=== PATIENT | male | born 1960 | race Caucasian/White ===

== ENCOUNTER 2016-07-01 11:58 | Inpatient (IN) | payer MEDICARE, OTHER ==
[~2016-07-01 11:58] MED LIST: ACETAMINOPHEN 100 ML IV ONE; GLYCOPYRROLATE INJ 0.4 MG/2 ML VIAL ONE; NEOSTIGMINE METHYLSULFATE 10 MG/10 ML VIAL ONE; ONDANSETRON HCL INJ/PF 4 MG/2 ML SDV ONE; ROCURONIUM BROMIDE INJ 50 MG/5 ML VIAL IV ONE; SUCCINYLCHOLINE CHLORIDE INJ 200 MG/10 ML VIAL ONE
--- NOTE | 2016-07-01 12:47 | ER Document Report ---
ED Medical Screen (RME) - General Chief Complaint: Abdominal Pain Stated Complaint: ABDOMINAL PAIN Notes: Patient is complaining of abdominal pains that started on Tuesday. They were fairly severe Tuesday and Tuesday, although he thought it was due to constipation. Pain is located in the middle central abdomen. [facility] and they told him he had a hernia. He says the pain has decreased some since he was seen at the [facility], and he feels constipated and has had poor bowel movement. Denies any nausea or vomiting or diarrhea. No blood in stools. No chest pains. No fevers. No abdominal surgeries. On exam, patient does have an umbilical hernia, which I believe is completely reducible. It's difficult to attempt to reduce it with him in a sitting position in a chair in triage. TRAVEL OUTSIDE OF THE [place] IN LAST 30 DAYS: No - Related Data Allergies/Adverse Reactions: No Known Allergies Allergy (Unverified 07/01/16 12:08) Past Medical History Renal/ Medical History: Denies: Hx Peritoneal Dialysis Physical Exam - Vital signs Vitals: Temp Pulse Resp BP Pulse Ox 97.6 F 91 20 128/85 H 96 07/01/16 12:08 07/01/16 12:08 07/01/16 12:08 07/01/16 12:08 07/01/16 12:08 Course - Vital Signs Vital signs: Temp Pulse Resp BP Pulse Ox 97.6 F 91 20 128/85 H 96 07/01/16 12:08 07/01/16 12:08 07/01/16 12:08 07/01/16 12:08 07/01/16 12:08
[2016-07-01 13:05] LABS: ABSOLUTE BASOPHILS # (AUTO) 0.1 10^3/uL (0.0-0.2); ABSOLUTE EOSINOPHILS # (AUTO) 0.2 10^3/uL (0.0-0.6); ABSOLUTE LYMPHOCYTES (AUTO) 2.4 10^3/uL (0.5-4.7); ABSOLUTE MONOCYTES (AUTO) 1.1 10^3/uL (0.1-1.4); ABSOLUTE NEUT (AUTO) 14.5 10^3/uL (1.7-8.2); BASOPHILS % (AUTO) 0.6 % (0-2); EOSINOPHILS % (AUTO) 1.3 % (0-6); HEMATOCRIT 41.3 % (37.9-51.0); HEMOGLOBIN 13.6 g/dL (13.5-17.0); HGB HCT DIFFERENCE -0.5; LYMPHOCYTES % (AUTO) 12.9 % (13-45); MEAN CORPUSCULAR HGB CONC 32.9 g/dL (32.0-36.0); MEAN CORPUSCULAR VOLUME 88 fl (80-97); MONOCYTES % (AUTO) 6.1 % (3-13); RED BLOOD COUNT 4.69 10^6/uL (4.35-5.55); RED CELL DISTRIBUTION WIDTH 13.6 % (11.5-14.0); SEGMENTED NEUTROPHILS % (AUTO) 79.1 % (42-78); WHITE BLOOD COUNT 18.3 10^3/uL (4.0-10.5)
[2016-07-01 13:12] LABS: APPEARANCE,URINE CLEAR; BILIRUBIN,URINE NEGATIVE (NEGATIVE); GLUCOSE, URINE NEGATIVE (NEGATIVE); KETONES,URINE NEGATIVE (NEGATIVE); LEUKOCYTE ESTERASE,URINE NEGATIVE (NEGATIVE); NITRITE,URINE NEGATIVE (NEGATIVE); PROTEIN,URINE NEGATIVE (NEGATIVE); URINE SPECIFIC GRAVITY 1.015
[2016-07-01 13:24] LABS: ALANINE AMINOTRANSFERASE 42 U/L (21-72); ALBUMIN 3.7 g/dL (3.5-5.0); ALKALINE PHOSPHATASE 101 U/L (38-126); ANION GAP 14 (5-19); ASPARTATE AMINO TRANSFERASE 43 U/L (17-59); BILIRUBIN,DIRECT 0.7 mg/dL (0.0-0.4); BILIRUBIN,TOTAL 2.1 mg/dL (0.2-1.3); BLOOD UREA NITROGEN 23 mg/dL (7-20); CALCIUM 9.4 mg/dL (8.4-10.2); CARBON DIOXIDE 28 mmol/L (22-30); CHLORIDE 100 mmol/L (98-107); CREATININE RESULT 0.93 mg/dL (0.52-1.25); GLUCOSE 113 mg/dL (75-110); LIPASE 92.5 U/L (23-300); POTASSIUM 4.2 mmol/L (3.6-5.0); SODIUM 141.8 mmol/L (137-145); TOTAL PROTEIN 7.1 g/dL (6.3-8.2)
--- NOTE | 2016-07-01 14:06 | ER Document Report ---
ED GI/ - General Mode of Arrival: Ambulatory Information source: Patient TRAVEL OUTSIDE OF THE [place] IN LAST 30 DAYS: No - HPI Patient complains to provider of: Abdominal pain - RUQ Onset: Other - 11 days ago Location: RUQ Associated symptoms: Other - see notes above <PATRICIA HAWKINS - Last Filed: 07/01/16 17:24> <CHARITY HAYES - Last Filed: 07/01/16 19:56> - General Chief Complaint: Abdominal Pain Stated Complaint: ABDOMINAL PAIN Notes: 55 year old male with history of an umbilical hernia presents to the ED complaining of RUQ abdominal pain that started 11 days ago. Patient reports that when the pain first started he was having tremendous pain with some abdominal distention. [facility]. Patient reports that the pain has gotten better, but complains of a decrease appetite. Patient [facility] unable to [facility] an [facility], so was sent to the ED. (PATRICIA HAWKINS) - Related Data Allergies/Adverse Reactions: No Known Allergies Allergy (Verified 07/01/16 13:43) Home Medications: Current Home Medications Gemfibrozil [Lopid 600 mg Tablet] 600 mg PO DAILY 07/01/16 [History] Hydrochlorothiazide [Hydrodiuril 25 mg Tablet] 25 mg PO QAM 07/01/16 [History] Losartan Potassium [Cozaar 100 mg Tablet] 100 mg PO DAILY 07/01/16 [History] Omeprazole 20 mg PO DAILY 07/01/16 [History] Past Medical History - General Information source: Patient - Social History Smoking Status: Never Smoker Frequency of alcohol use: Heavy - weekends Family History: Reviewed & Not Pertinent Patient has suicidal ideation: No Patient has homicidal ideation: No Renal/ Medical History: Denies: Hx Peritoneal Dialysis Past Surgical History: Denies: Hx Abdominal Surgery <PATRICIA HAWKINS - Last Filed: 07/01/16 17:24> Review of Systems - Review of Systems Constitutional: No symptoms reported EENT: No symptoms reported Cardiovascular: No symptoms reported Respiratory: No symptoms reported Gastrointestinal: See HPI, Abdomen distended, Abdominal pain - RUQ, Poor appetite Genitourinary: No symptoms reported Male Genitourinary: No symptoms reported Musculoskeletal: No symptoms reported Skin: No symptoms reported Hematologic/Lymphatic: No symptoms reported Neurological/Psychological: No symptoms reported -: Yes All other systems reviewed and negative <SHRUTHIPATRICIA - Last Filed: 07/01/16 17:24> Physical Exam - General General appearance: Alert In distress: None - HEENT Head: Normocephalic, Atraumatic Eyes: Normal Extraocular movements intact: Yes Pupils: PERRL - Respiratory Respiratory status: No respiratory distress Breath sounds: Normal - Cardiovascular Rhythm: Regular Heart sounds: Normal auscultation - Abdominal Inspection: Normal Distension: No distension Tenderness: Tender - RUQ tenderness to palpation - Back Back: Normal - Extremities General upper extremity: Normal inspection, Normal ROM General lower extremity: Normal inspection, Normal ROM - Neurological Neuro grossly intact: Yes Cognition: Normal Orientation: AAOx4 [place] Coma Scale Eye Opening: Spontaneous Nathanael Coma Scale Verbal: Oriented [place] Coma Scale Motor: Obeys Commands Nathanael Coma Scale Total: 15 Speech: Normal - Psychological Associated symptoms: Normal affect, Normal mood - Skin Skin Temperature: Warm Skin Moisture: Dry Skin Color: Normal <PATRICIA HAWKINS - Last Filed: 07/01/16 17:24> Course - Laboratory Result Diagrams: 07/01/16 12:45 07/01/16 12:45 - Consults Dr. Campos Time consulted: 15:11 <SHRUTHIPATRICIA - Last Filed: 07/01/16 17:24> - Laboratory Result Diagrams: 07/01/16 12:45 07/01/16 12:45 - Diagnostic Test Radiology reviewed: Image reviewed, Reports reviewed <CHARITY HAYES - Last Filed: 07/01/16 19:56> - Re-evaluation Re-evalutation: 07/01/16 Patient presents with right upper quadrant pain and some nausea. History, physical, and ultrasound consistent with cholecystitis. Surgery was consulted and the patient will be taken to the OR. Patient understands and agrees this plan. Stable at time of admission. (CHARITY HAYES) - Vital Signs Vital signs: Temp Pulse Resp BP Pulse Ox 98 F 90 20 124/71 93 07/01/16 18:44 07/01/16 19:29 07/01/16 19:29 07/01/16 19:29 07/01/16 19:29 - Laboratory Laboratory results interpreted by me: 07/01/16 07/01/16 07/01/16 12:45 12:45 12:45 WBC 18.3 H Seg Neutrophils % 79.1 H Lymphocytes % 12.9 L Absolute Neutrophils 14.5 H BUN 23 H Glucose 113 H Total Bilirubin 2.1 H Direct Bilirubin 0.7 H Urine Urobilinogen 2.0 H - Consults Dr. Cmapos Reason for consultation: 07/01/16 15:11 Patient was discussed with Dr. Campos and agrees to see patient at bedside. (PATRICIA HAWKINS) Discharge <PATRICIA HAWKINS - Last Filed: 07/01/16 17:24> - Discharge Admitting Provider: Surgicalist Unit Admitted: OR <CHARITY HAYES - Last Filed: 07/01/16 19:56> - Discharge Clinical Impression: Cholecystitis Condition: Stable Disposition: ADMITTED INPATIENT Scribe Attestation: 07/01/16 19:56 I personally performed the services described in the documentation, reviewed and edited the documentation which was dictated to the scribe in my presence, and it accurately records my words and actions. (CHARITY HAYES) Scribe Documentation - Scribe Written by Erika:: Erika Stallworth, 07/01/2016 1554 acting as scribe for :: Gibson <PATRICIA HAWKINS - Last Filed: 07/01/16 17:24>
[2016-07-01] MEDS ORDERED: NORMAL SALINE 1000 ML 1,000 ML IV ONE (14:09)
[2016-07-01] MEDS ORDERED: AMPICILLIN SOD/SULBACTAM 3 GM VIAL ONE (15:51)
[2016-07-01] MEDS ORDERED: MIDAZOLAM 2 MG/2 ML INJ ONE (16:03)
[2016-07-01] MEDS ORDERED: EPHEDRINE SULFATE INJ 50 MG/1 ML AMPULE ONE (16:03)
[2016-07-01] MEDS ORDERED: FENTANYL CITRATE INJ/PF 250 MCG/5 ML AMPULE ONE (16:03)
[2016-07-01] MEDS ORDERED: HYDROMORPHONE HCL INJ/PF 2 MG/ML AMPULE ONE (16:03)
[2016-07-01] MEDS ORDERED: ACETAMINOPHEN 100 ML IV ONE (16:04)
[2016-07-01] MEDS ORDERED: PROPOFOL INJ 200 MG/20 ML VIAL IV ONE (16:04)
[2016-07-01] MEDS ORDERED: BUPIVACAINE HCL 0.25 % INJ/PF (2.5 MG/1 ML) 30 ML VIAL ONE (16:26)
[2016-07-01] MEDS ORDERED: OXYCODONE-ACETAMINOPHEN 5-325 MG TABLET PO PRN ×2 (17:24)
[2016-07-01] MEDS ORDERED: MORPHINE SULFATE 10 MG/ML INJ IV PRN ×2 (17:24→18:54)
[2016-07-01] MEDS ORDERED: FENTANYL CITRATE INJ/PF 100 MCG/2 ML AMPUL IV PRN ×3 (17:24)
[2016-07-01] MEDS ORDERED: DIPHENHYDRAMINE HCL 50 MG/ML VIAL IV PRN (17:24)
[2016-07-01] MEDS ORDERED: PROMETHAZINE HCL INJ 25 MG/1 ML VIAL IV PRN ×2 (17:24)
[2016-07-01] MEDS ORDERED: MEPERIDINE HCL/PF INJ 25 MG/1 ML DISP.SYRIN IV PRN (17:24)
--- NOTE | 2016-07-01 18:37 | PDOC H&P ---
History of Present Illness Patient complains of: Abdominal pain History of Present Illness: COREY SALDANA is a 55 year old male Presenting with epigastric abdominal pain for the past several days perhaps more so in the right upper quadrant. Had been evaluated by an outside facility was told that he just had a hernia. Later he was called back by the facility and the told to go to the emergency department. Patient actually feels better today than in the last several days. He denies any jaundice. Denies any fever. He denies any prior history of this sort of pain. Patient does drink fairly heavily on the weekends. No alcohol related health issues identified in the past. Past Medical History Musculoskeltal Medical History: Reports: Other - History of orthopedic surgery in the past. Skin Medical History: Reports: Other - Skin cancer removed from his nose recently. Social History Smoking Status: Former Smoker Frequency of Alcohol Use: Heavy - Heavy alcohol use on the weekends. Hx Recreational Drug Use: No Family History Parental Family History Reviewed: No Children Family History Reviewed: No Sibling(s) Family History Reviewed.: No Medication/Allergy Home Medications: Gemfibrozil [Lopid 600 mg Tablet] 600 mg PO DAILY 07/01/16 Hydrochlorothiazide [Hydrodiuril 25 mg Tablet] 25 mg PO QAM 07/01/16 Losartan Potassium [Cozaar 100 mg Tablet] 100 mg PO DAILY 07/01/16 Omeprazole 20 mg PO DAILY 07/01/16 Allergies/Adverse Reactions: No Known Allergies Allergy (Verified 07/01/16 13:43) Physical Exam Vital Signs: Temp Pulse Resp BP Pulse Ox 97.6 F 91 20 128/85 H 96 07/01/16 12:08 07/01/16 12:08 07/01/16 12:08 07/01/16 12:08 07/01/16 12:08 Intake & Output 06/30/16 07/01/16 07/02/16 06:59 06:59 06:59 Weight 119.6 kg General appearance: PRESENT: no acute distress, cooperative Neck exam: PRESENT: other - Supple and nontender Respiratory exam: PRESENT: clear to auscultation lida Cardiovascular exam: PRESENT: RRR GI/Abdominal exam: PRESENT: other - Soft, protuberant and obese. Umbilical hernia that is reducible with some effort. Right upper quadrant focal abdominal tenderness with positive Mars sign. Extremities exam: PRESENT: other - No swelling and no tenderness. Neurological exam: PRESENT: alert, awake Psychiatric exam: PRESENT: appropriate affect Results Laboratory Results: 07/01/16 12:45 07/01/16 12:45 07/01/16 07/01/16 07/01/16 12:45 12:45 12:45 WBC 18.3 H RBC 4.69 Hgb 13.6 Hct 41.3 MCV 88 MCH 29.0 MCHC 32.9 RDW 13.6 Plt Count 337 Seg Neutrophils % 79.1 H Lymphocytes % 12.9 L Monocytes % 6.1 Eosinophils % 1.3 Basophils % 0.6 Absolute Neutrophils 14.5 H Absolute Lymphocytes 2.4 Absolute Monocytes 1.1 Absolute Eosinophils 0.2 Absolute Basophils 0.1 Sodium 141.8 Potassium 4.2 Chloride 100 Carbon Dioxide 28 Anion Gap 14 BUN 23 H Creatinine 0.93 Est GFR ( Amer) > 60 Est GFR (Non-Af Amer) > 60 Glucose 113 H Calcium 9.4 Total Bilirubin 2.1 H AST 43 ALT 42 Alkaline Phosphatase 101 Total Protein 7.1 Albumin 3.7 Lipase 92.5 Urine Color YELLOW Urine Appearance CLEAR Urine pH 6.0 Ur Specific [place] 1.015 Urine Protein NEGATIVE Urine Glucose (UA) NEGATIVE Urine Ketones NEGATIVE Urine Blood NEGATIVE Urine Nitrite NEGATIVE Ur Leukocyte Esterase NEGATIVE Urine WBC (Auto) 1 Urine RBC (Auto) 1 Impressions: Abdomen Ultrasound 07/01/16 14:07 IMPRESSION: GALLSTONES. MILD GALLBLADDER WALL THICKENING AND SMALL AMOUNT OF PERICHOLECYSTIC FLUID. NO BILIARY DILATION. Assessment & Plan - Diagnosis (1) Cholecystitis Is this a current diagnosis for this admission?: YesPlan: Acute cholecystitis that has been present for several days in a obese patient with the hepatomegaly. Patient would the benefit from a laparoscopic cholecystectomy however it will be technically very challenging in light of the above-mentioned factors. I have discussed with the patient the risk and benefits of the surgery including the distinct possibility of conversion to an open procedure, risk of bleeding, infection, bile duct and intestinal injury, as well as mistaken diagnosis, postcholecystectomy diarrhea, and cardiopulmonary risks. Patient understands and agrees to proceed. If his liver appears abnormal I will plan a liver biopsy during the procedure. Although his total bilirubin is elevated, his transaminases and his alkaline phosphatase is normal and his bile duct does not appear to be dilated on ultrasonography; therefore, will not plan to do a intraoperative cholangiogram.
[2016-07-01] MEDS ORDERED: ONDANSETRON HCL INJ/PF 4 MG/2 ML SDV IV PRN (18:50)
[2016-07-01] MEDS ORDERED: DEXTROSE 5%-LACTATED RINGERS 1,000 ML IV PRN (18:50)
--- NOTE | 2016-07-01 18:50 | Operative Report ---
Operative Report DATE OF SURGERY: 07/01/16 PREOPERATIVE DIAGNOSIS: Acute cholecystitis, umbilical hernia POSTOPERATIVE DIAGNOSIS: Gangrenous cholecystitis, umbilical hernia OPERATION: Attempted laparoscopic cholecystectomy. Conversion to open cholecystectomy. Umbilical hernia repair. SURGEON: ASHWINI CARBONE ANESTHESIA: GA TISSUE REMOVED OR ALTERED: Gallbladder. Hernia sac. COMPLICATIONS: None ESTIMATED BLOOD LOSS: 300 mL INTRAOPERATIVE FINDINGS: Omentum firmly plastered to gangrenous appearing gallbladder. Multiple gallstones. 2 cm umbilical hernia. PROCEDURE: Informed consent was obtained. Patient was brought to the operating room placed on the operating room table in the supine position. After satisfactory induction of general anesthesia patient's abdomen was prepped and draped in the usual sterile fashion. A semicircular periumbilical incision was made dissection was carried down. the hernia sac was dissected free from the surrounding structures. Hernia sac was opened thus entering the peritoneal cavity. The hernia sac was excised. The fascial defect of the umbilical hernia measured about 2 cm in size. Stay sutures were placed and Soto trocar was inserted. Pneumoperitoneum produced with good patient toleration. 5 mm trocar was placed in the subxiphoid location interna peritoneal cavity to the right-hand side of the falciform ligament. Two 5 mm trochars were placed in right subcostal location. Patient was placed in a reverse Trendelenburg position with the right side up. The omentum was peeled off of the underlying gallbladder. Just enough to expose the top portion of the gallbladder. I could not obtain any further exposure than this laparoscopically. With the inability to obtain adequate exposure, the case was converted to open procedure. A right subcostal incision was made dissection was carried down through the fascia and the peritoneal cavity was entered without difficulty. A wound protractor was used during the case. Bookwalter retractor was used during the case. The omentum was firmly adhered to the gallbladder a plane was found bluntly and the omentum was peeled off of the gallbladder. The gallbladder appeared gangrenous. A top down approach was then taken however the plane between the gallbladder and the liver was very indistinct and at one point I entered a small pus pocket. The pus was sent for Gram stain and culture. Dissection was carried down toward the cystic duct however in the region of calot's triangle, there was severe inflammatory changes which made the anatomy indistinct. With this finding I transected at the point where I thought it was the distal gallbladder and as it turned out it turned out to be the proximal aspect of the cystic duct surrounded by very thick inflammatory tissues. There was no plane between the cystic artery and the cystic duct and both of these structures were taken together using a clip criminal intelligence analyst. I stayed well away from the axel hepatis during the dissection. The operative field was irrigated. There was stone and bile spillage during the case. The stones were retrieved. The irrigation fluid was perfectly clear at the end of the case. A Titi-Mckeon drain was placed at the dissection bed and brought out through the subxiphoid 5 mm trocar site incision. It was sutured in place. Sponge needle and strength counts were all correct. Fascia was closed in 2 layers with running PDS suture. Skin was closed with pao. Umbilical hernia repair was performed using interrupted Ethibond sutures, closing the fascial defect in a transverse direction. The repair came together well without undue tension. The bellybutton was tacked to the underlying fascia. Skin was closed with pao. Marcaine was injected at the operative site. Patient tolerated procedure well with no apparent complications and was taken to the recovery area in stable condition.
[2016-07-01] MEDS ORDERED: FAMOTIDINE INJ/PF 20 MG/2 ML SDV IV SCH (22:00)
--- NOTE | 2016-07-01 22:30 | PDOC PROGRESS REPORT ---
Subjective Progress Note for:: 07/01/16 Subjective:: Feels much better than preop. Physical Exam Vital Signs: Temp Pulse Resp BP Pulse Ox 101.3 F H 91 18 125/73 94 07/01/16 19:44 07/01/16 19:44 07/01/16 19:44 07/01/16 19:44 07/01/16 22:23 Pulse Oximeter Continuous Start: 07/01/16 22: 14 Freq: Status: Active Document 07/01/16 22:23 [facility] (Rec: 07/01/16 22:26 [facility] [email or web address]) Pulse Oximetry Assessment Oxygen Saturation (92-100) 94 Oxygen Flow Rate (L/min) 3 Oxygen Delivery Method Nasal Cannula Equipment Usage Initial Set Up Continuous Pulse Oximeter 24 Hour Charge Charge Now Continuous SpO2 Machine # [id number] General appearance: PRESENT: no acute distress, cooperative Respiratory exam: PRESENT: clear to auscultation lida Cardiovascular exam: PRESENT: RRR GI/Abdominal exam: PRESENT: other - Soft, nondistended, very mild the tenderness in the right upper quadrant markedly improved from preoperative exam. JOS drain output is blood stained nonbilious.. Extremities exam: PRESENT: other - No swelling or tenderness Results Impressions: Abdomen Ultrasound 07/01/16 14:07 IMPRESSION: GALLSTONES. MILD GALLBLADDER WALL THICKENING AND SMALL AMOUNT OF PERICHOLECYSTIC FLUID. NO BILIARY DILATION. Assessment & Plan - Diagnosis (1) Cholecystitis Is this a current diagnosis for this admission?: YesPlan: Status post open cholecystectomy. Patient looks very good postoperatively. Await bowel function. Keep Titi-Mckeon drain in until patient taking by mouth 's and output is serosanguineous.
[2016-07-02 07:13] LABS: HEMATOCRIT 36.3 % (37.9-51.0); HEMOGLOBIN 12.3 g/dL (13.5-17.0); HGB HCT DIFFERENCE 0.6; MEAN CORPUSCULAR HEMOGLOBIN 29.6 pg (27.0-33.4); MEAN CORPUSCULAR VOLUME 87 fl (80-97); RED BLOOD COUNT 4.17 10^6/uL (4.35-5.55); RED CELL DISTRIBUTION WIDTH 13.1 % (11.5-14.0)
[2016-07-02 07:34] LABS: ALANINE AMINOTRANSFERASE 46 U/L (21-72); ALKALINE PHOSPHATASE 81 U/L (38-126); ANION GAP 14 (5-19); ASPARTATE AMINO TRANSFERASE 55 U/L (17-59); BILIRUBIN,DIRECT 0.5 mg/dL (0.0-0.4); BILIRUBIN,TOTAL 1.1 mg/dL (0.2-1.3); BLOOD UREA NITROGEN 14 mg/dL (7-20); CALCIUM 8.6 mg/dL (8.4-10.2); CARBON DIOXIDE 26 mmol/L (22-30); CHLORIDE 101 mmol/L (98-107); CREATININE RESULT 0.73 mg/dL (0.52-1.25); GLUCOSE 118 mg/dL (75-110); POTASSIUM 4.4 mmol/L (3.6-5.0); SODIUM 140.6 mmol/L (137-145)
[2016-07-02] MEDS: ENOXAPARIN SODIUM INJ 40 MG/0.4 ML DISP.SYRIN SUBCUT SCH (07:58)
[2016-07-02] MEDS: HYDROCHLOROTHIAZIDE 25 MG TABLET PO SCH (08:03)
[2016-07-02] MEDS: LANSOPRAZOLE 15 MG TAB.RAP.DR PO SCH (09:35)
[2016-07-02] MEDS: GEMFIBROZIL 600 MG TABLET PO SCH (09:35)
[2016-07-02] MEDS: LOSARTAN POTASSIUM 50 MG TABLET PO SCH (09:36)
[2016-07-02] MEDS ORDERED: LOSARTAN POTASSIUM 50 MG TABLET PO SCH (10:00)
--- NOTE | 2016-07-02 10:18 | PDOC PROGRESS REPORT ---
Subjective Progress Note for:: 07/02/16 Subjective:: Patient seen this morning at 8:00 AM. Feels better, Workman catheter discontinued , patient denies shortness of breath. Physical Exam Vital Signs: Temp Pulse Resp BP Pulse Ox 98.2 F 77 18 113/46 L 97 07/02/16 08:39 07/02/16 08:39 07/02/16 08:39 07/02/16 08:39 07/02/16 08:39 Pulse Oximeter Continuous Start: 07/01/16 22: 14 Freq: Status: Complete Document 07/01/16 22:23 [facility] (Rec: 07/01/16 22:26 [facility] [email or web address]) Pulse Oximetry Assessment Oxygen Saturation (92-100) 94 Oxygen Flow Rate (L/min) 3 Oxygen Delivery Method Nasal Cannula Equipment Usage Initial Set Up Continuous Pulse Oximeter 24 Hour Charge Charge Now Continuous SpO2 Machine # [id number] Pulse Oximeter Continuous Start: 07/02/16 00: 12 Freq: RTQ4 Status: Active Document 07/02/16 00:15 [facility] (Rec: 07/02/16 00:32 [facility] [email or web address]) Pulse Oximetry Assessment Oxygen Saturation (92-100) 95 Oxygen Delivery Method CPAP Fraction of Inspired Oxygen (FIO2) 30 Equipment Usage Equipment in Use Continuous Pulse Oximeter 24 Hour Charge Charge Now Continuous SpO2 Machine # [id number] Intake & Output 07/01/16 07/02/16 07/03/16 06:59 06:59 06:59 Intake Total 150 Output Total 1390 60 Balance -1240 -60 Weight 120.2 kg General appearance: PRESENT: no acute distress GI/Abdominal exam: PRESENT: other - Operative dressings dry and intact. Abdomen is soft, with appropriate tenderness in the right upper quadrant; drain putting out nonbilious serous fluid Results Laboratory Results: 07/02/16 06:24 07/02/16 06:24 07/02/16 07/02/16 06:24 06:24 WBC 16.0 H RBC 4.17 L Hgb 12.3 L Hct 36.3 L MCV 87 MCH 29.6 MCHC 34.0 RDW 13.1 Plt Count 314 Sodium 140.6 Potassium 4.4 Chloride 101 Carbon Dioxide 26 Anion Gap 14 BUN 14 Creatinine 0.73 Est GFR ( Amer) > 60 Est GFR (Non-Af Amer) > 60 Glucose 118 H Calcium 8.6 Total Bilirubin 1.1 AST 55 ALT 46 Alkaline Phosphatase 81 Total Protein 6.0 L Albumin 3.0 L Impressions: Abdomen Ultrasound 07/01/16 14:07 IMPRESSION: GALLSTONES. MILD GALLBLADDER WALL THICKENING AND SMALL AMOUNT OF PERICHOLECYSTIC FLUID. NO BILIARY DILATION. Assessment & Plan - Diagnosis (1) Cholecystitis Is this a current diagnosis for this admission?: YesPlan: 1. Patient is one day postoperative laparoscopic conversion to open cholecystectomy with drain placement for acute cholecystitis with cholelithiasis. Complications 2. Plan: Will wean off oxygen, get out of bed to chair, start clear liquids, and switch to by mouth pain medication We'll keep on intravenous antibiotics today. Hopefully home in the next 24-48 hours
[2016-07-02] MEDS: OXYCODONE-ACETAMINOPHEN 5-325 MG TABLET PO PRN (11:52)
--- NOTE | 2016-07-03 09:08 | DISCHARGE SUMMARY E ---
Discharge Summary NAME: COREY SALDANA : 1960 AGE: 55Y ADMITTED: 07/01/2016 DISCHARGED: ADMITTING DIAGNOSIS: Abdominal pain, acute cholecystitis. DISCHARGE DIAGNOSIS: Acute cholecystitis. OPERATIVE INTERVENTION: Open cholecystectomy done by on-call surgeon. Patient admitted for postop pain management and also ileus management. Today, he is feeling better, passing flatus and tolerating diet. Abdominal examination: Soft. All incisions are clean and healing well. JOS drain is serous, which is being removed. Rest of the examination clear. Overall, the patient is doing well. Discharge medications: [place] for the pain, stool softeners. FOLLOWUP PLAN: Surgical office in 2 weeks. DICTATING PHYSICIAN: JAELYN HEATH M.D. [id number] PHY#: [id number] ID: [id number] JOB#: [id number] ACCT: [id number] cc:Caroline RAMOS M.D. >
[2016-07-03] MEDS: LOSARTAN POTASSIUM 50 MG TABLET PO SCH (09:15)
[2016-07-03] MEDS: GEMFIBROZIL 600 MG TABLET PO SCH (09:15)
[2016-07-03] MEDS: LANSOPRAZOLE 15 MG TAB.RAP.DR PO SCH (09:15)
[2016-07-03] MEDS: HYDROCHLOROTHIAZIDE 25 MG TABLET PO SCH (09:17)
[2016-07-03] MEDS: ENOXAPARIN SODIUM INJ 40 MG/0.4 ML DISP.SYRIN SUBCUT SCH (09:18)
[2016-07-03 16:20] VITALS: BP 113/46
[2016-07-03] MEDS: OXYCODONE-ACETAMINOPHEN 5-325 MG TABLET PO PRN (16:54)
== END 2016-07-03 16:35 | disposition home or self-care (01) | DRG 416 ==
LOC: ER 11:58 → EH 15:52 → UNDOADMIN 15:52 → EH 18:50 → 2N 20:34
PROVIDERS: ADMIT Surgery; ATTEND Surgery
PROC: 0FJ44ZZ Inspection of Gallbladder, Percutaneous Endoscopic Approach (ICD-10-PCS; 2016-07-01)
PROC: 0WQF4ZZ Repair Abdominal Wall, Percutaneous Endoscopic Approach (ICD-10-PCS; 2016-07-01)
PROC: 0FT40ZZ Resection of Gallbladder, Open Approach (ICD-10-PCS; principal; 2016-07-01 16:45)
DX: K80.00 Calculus of gallbladder with acute cholecystitis without obstruction (principal); K42.9 Umbilical hernia without obstruction or gangrene; R10.11 Right upper quadrant pain; Z53.31 Laparoscopic surgical procedure converted to open procedure
CPT/HCPCS: 36415; 76705; 790; 80053; 81001; 83690; 85025; 85027; 87070; 87075; 87077; 87186; 87205; 88302; 88304; 94660; 94762; 99285; J0131; J0295; J0330; J1170; J1650; J2250; J2405; J2704; J3010; J3490

== ENCOUNTER → 2018-07-20 | Outpatient (CLI) | payer OTHER ==
--- NOTE | 2018-07-20 10:47 | RADIOLOGY REPORT (SQ) ---
EXAM DESCRIPTION: MRI RT LOWER JOINT WITHOUT COMPLETED DATE/TIME: 07/20/2018 10:16 am REASON FOR STUDY: RIGHT KNEE PAIN (M25.561) M25.561 PAIN IN RIGHT KNEE COMPARISON: None. TECHNIQUE: Rightknee images acquired and stored on PACS. Multiplanar images include fat sensitive s equences as T1, water sensitive sequences as FST2 or STIR, cartilage sensitive sequences as FSPD, and gradient echo sequences. LIMITATIONS: None. FINDINGS: JOINT AND BURSAE: No effusion. BONE CORTEX AND MARROW: No alteration of signal to suggest marrow replacement. No worrisome bone lesi ons. No occult fracture. ACL: Intact. No degeneration or ganglion cyst. PCL: Intact. MCL: Intact. No periligamentous edema or fluid. LCL: Intact. No periligamentous edema or fluid. MEDIAL MENISCUS: Complex tear mid body medial meniscus best shown on sagittal image 12 LATERAL MENISCUS: Diffuse degeneration with enlargement and high signal throughout the anterior horn and midbody lateral meniscus. No parameniscal cyst. These findings are best shown on coronal images 12-19, and sagittal images 5-10. MEDIAL COMPARTMENT: Cartilage preserved. No bone bruises or reactive marrow edema. No osteophytes. LATERAL COMPARTMENT: Cartilage preserved. No bone bruises or reactive marrow edema. No osteophytes. PATELLA: No chondromalacia. No subchondral cysts. Medial and lateral retinacula intact. EXTENSOR MECHANISM: Intact. Quadriceps and patella tendons normal. SOFT TISSUES: Adjacent muscles and subcutaneous tissues normal. Normal flow void in popliteal artery and vein. OTHER: No other significant finding. IMPRESSION: Medial and lateral meniscal tears. TECHNICAL DOCUMENTATION: JOB ID: [id number]- All Rights Reserved Reading location - IP/workstation name: [email or web address]
== END ==
LOC: RAD 09:21
PROVIDERS: ATTEND Family Medicine
DX: M25.561 Pain in right knee (principal)